=== PATIENT | female | born 1975 | race Caucasian/White ===

== ENCOUNTER 2021-12-10 09:58 | Day surgery (SDC) | payer OTHER ==
[2021-12-10] MEDS ORDERED: Depo-Medrol 40 MG/ML IM ONE (09:59)
[2021-12-10] MEDS ORDERED: BUPIVACAINE 0.5% VIAL IJ ONE (09:59)
[2021-12-10] MEDS ORDERED: DIPRIVAN 200 MG/20 ML IV ONE (11:23)
[2021-12-10] MEDS ORDERED: Lactated Ringers 1,000 ML IV ONE (12:18)
--- NOTE | 2021-12-11 08:53 | XRAY ---
Indication: Bilateral SI joint injection. Intraoperative fluoroscopy provided for 21 seconds. 3 digital spot images submitted for interpretation demonstrates posterior needle tips projecting over the inferior SI joints. Correlate with intraoperative findings/report.
--- NOTE | 2021-12-11 08:56 | XRAY ---
21 seconds of fluoroscopy was used in surgery for a bilateral SI joint injections.
== END 2021-12-10 11:48 | disposition home or self-care (01) ==
LOC: SDC-PAIN 09:58
PROVIDERS: ATTEND Psychiatry & Neurology Pain Medicine
DX: M46.1 Sacroiliitis, not elsewhere classified (principal); E11.9 Type 2 diabetes mellitus without complications; Z79.899 Other long term (current) drug therapy
CPT/HCPCS: 27096; 72202; 77002; 82947; 84703; G0260; J1030; J2704

== ENCOUNTER 2022-06-03 09:46 | Day surgery (SDC) | payer OTHER ==
[2022-06-03] MEDS ORDERED: Depo-Medrol 40 MG/ML IM ONE (09:47)
[2022-06-03] MEDS ORDERED: Marcaine Mpf 0.5% Vial 30 Ml IJ ONE (09:47)
[2022-06-03] MEDS ORDERED: Lactated Ringers 1,000 ML IV ONE (12:15)
--- NOTE | 2022-06-03 14:32 | XRAY ---
Indication: Bilateral SI joint injection. Intraoperative fluoroscopy provided for 15 seconds. 4 digital spot image submitted for interpretation demonstrates posterior needle tip projecting over the inferior left and right SI joint. Correlate with intraoperative findings/report.
--- NOTE | 2022-06-03 16:45 | XRAY ---
15 seconds of fluoroscopy was used in surgery for bilateral SI injections.
== END 2022-06-03 11:25 | disposition home or self-care (01) ==
LOC: SDC-PAIN 09:46
PROVIDERS: ATTEND Psychiatry & Neurology Pain Medicine
DX: M46.1 Sacroiliitis, not elsewhere classified (principal); E11.9 Type 2 diabetes mellitus without complications; Z79.899 Other long term (current) drug therapy
CPT/HCPCS: 27096; 72202; 77002; 81025; 82947; G0260; J1030

== ENCOUNTER 2023-09-22 09:06 | Day surgery (SDC) | payer OTHER ==
[2023-09-22] MEDS ORDERED: Decadron 4 MG INJ IV ONE (09:07)
[2023-09-22] MEDS ORDERED: Depo-Medrol 40 MG/ML IM ONE (09:07)
[2023-09-22] MEDS ORDERED: BUPIVACAINE 0.5% VIAL IJ ONE (09:07)
[2023-09-22 10:09] LABS: HCG SERUM TEST NEGATIVE (NEGATIVE)
[2023-09-22] MEDS ORDERED: DIPRIVAN 200 MG/20 ML IV ONE (10:57)
[2023-09-22] MEDS ORDERED: Lactated Ringers 1,000 ML IV ONE (14:58)
--- NOTE | 2023-09-22 21:03 | XRAY ---
Indication: Right SI joint and right piriformis injection. Intraoperative fluoroscopy provided for 32 seconds. 2 digital spot image submitted for interpretation demonstrates posterior needle tip projecting right SI joint. Second needle tip projects over piriformis with small amount of contrast injected for needle tip placement. Correlate with intraoperative findings/report.
--- NOTE | 2023-09-22 21:43 | XRAY ---
32 seconds of fluoroscopy was used in surgery for a right sacroiliac and piriformis injection.
== END 2023-09-22 11:25 | disposition home or self-care (01) ==
LOC: SDC-PAIN 09:06
PROVIDERS: ATTEND Psychiatry & Neurology Pain Medicine
DX: M46.1 Sacroiliitis, not elsewhere classified (principal); M79.18 Myalgia, other site; E11.9 Type 2 diabetes mellitus without complications; Z79.899 Other long term (current) drug therapy
CPT/HCPCS: 01992; 20552; 27096; 36415; 72170; 76942; 77002; 82947; 84703; G0260; J1030; J1100; J2704; Q9966

== ENCOUNTER 2023-11-10 10:13 | Day surgery (SDC) | payer OTHER ==
[2023-11-10] MEDS ORDERED: Sodium Chloride 0.9(Preservative Free) 10 ML IJ ONE (10:14)
[2023-11-10] MEDS ORDERED: BUPIVACAINE 0.5% VIAL IJ ONE (10:14)
[2023-11-10] MEDS ORDERED: Decadron 4 MG INJ IV ONE (10:14)
[2023-11-10 11:06] LABS: HCG URINE TEST NEGATIVE (NEGATIVE)
[2023-11-10] MEDS ORDERED: DIPRIVAN 200 MG/20 ML IV ONE (12:13)
--- NOTE | 2023-11-10 13:22 | XRAY ---
Indication: Right L4-S1 transforaminal LIV. Intraoperative fluoroscopy provided for 35 seconds. 4 digital spot images submitted for interpretation demonstrates posterior needle tips projecting over the expected right L4 and L5 nerve roots. Small amount contrast injected for needle tip placement. Correlate with intraoperative findings/report.
--- NOTE | 2023-11-10 13:22 | XRAY ---
Indication: Right piriformis injection. Intraoperative fluoroscopy provided for 16 seconds. Single digital spot images submitted for interpretation demonstrates posterior needle tip projecting over right piriformis. Small amount of contrast injected for needle tip placement. Correlate with intraoperative findings/report.
[2023-11-10] MEDS ORDERED: Lactated Ringers 1,000 ML IV ONE (14:08)
--- NOTE | 2023-11-10 15:08 | XRAY ---
16 seconds of fluoroscopy was used in surgery for a right piriformis injection.
--- NOTE | 2023-11-10 15:08 | XRAY ---
35 seconds of fluoroscopy was used in surgery for a lumbar LIV.
== END 2023-11-10 12:45 | disposition home or self-care (01) ==
LOC: SDC-PAIN 10:13
PROVIDERS: ATTEND Psychiatry & Neurology Pain Medicine
DX: M54.16 Radiculopathy, lumbar region (principal); M79.18 Myalgia, other site; E11.9 Type 2 diabetes mellitus without complications
CPT/HCPCS: 20552; 64483; 64484; 72100; 72170; 77002; 77003; 81025; 82947; J1100; J2704; Q9966

== ENCOUNTER 2023-12-29 06:59 | Day surgery (SDC) | payer OTHER ==
[~2023-12-29 06:59] MED LIST: Mylicon DROPS ONE
[2023-12-29] MEDS ORDERED: LIDOCAINE HCL 2% 100 MG/5 ML IJ ONE (07:00)
[2023-12-29 07:13] LABS: HCG URINE TEST NEGATIVE (NEGATIVE)
[2023-12-29] MEDS ORDERED: DIPRIVAN 200 MG/20 ML IV ONE (08:32)
[2023-12-29] MEDS ORDERED: Xylocaine-Mpf 2% 5 Ml Vial ONE (08:34)
[2023-12-29] MEDS ORDERED: BENADRYL 50 MG/ML ONE (08:56)
[2023-12-29] MEDS ORDERED: Lactated Ringers 1,000 ML IV ONE (09:57)
--- NOTE | 2023-12-29 10:20 | XRAY ---
Indication: Bilateral L4-S1 MBB. Intraoperative fluoroscopy provided for 15 seconds. Single digital spot image submitted for interpretation demonstrates posterior needle tips projecting over expected left and right L4-S1 nerve roots. Correlate with intraoperative findings/report.
--- NOTE | 2023-12-29 10:39 | XRAY ---
15 seconds of fluoroscopy was used in surgery for a bilateral L4-S1 MBB.
== END 2023-12-29 09:10 | disposition home or self-care (01) ==
LOC: SDC-PAIN 06:59
PROVIDERS: ATTEND Psychiatry & Neurology Pain Medicine
DX: M47.816 Spondylosis without myelopathy or radiculopathy, lumbar region (principal); E11.9 Type 2 diabetes mellitus without complications
CPT/HCPCS: 64493; 64494; 72020; 77002; 81025; 82947; J1200; J2704; A9270-GY

== ENCOUNTER 2024-01-26 10:11 | Day surgery (SDC) | payer OTHER ==
[2024-01-26] MEDS ORDERED: BUPIVACAINE 0.5% VIAL IJ ONE (10:12)
[2024-01-26] MEDS ORDERED: Depo-Medrol 40 MG/ML IM ONE (10:12)
[2024-01-26 10:38] LABS: HCG URINE TEST NEGATIVE (NEGATIVE)
[2024-01-26] MEDS ORDERED: DIPRIVAN 200 MG/20 ML IV ONE (11:38)
[2024-01-26] MEDS ORDERED: DEXMEDETOMIDINE 80 MCG/20ML-NS IV ONE (11:38)
[2024-01-26] MEDS ORDERED: Xylocaine-Mpf 2% 5 Ml Vial ONE (11:40)
[2024-01-26] MEDS ORDERED: Lactated Ringers 1,000 ML IV ONE (11:43)
--- NOTE | 2024-01-26 12:54 | XRAY ---
Indication: Bilateral SI joint injection. Intraoperative fluoroscopy provided for 13 seconds. 5 digital spot images submitted for interpretation demonstrates posterior needle tip projecting over left and right SI joint. Correlate with intraoperative findings/report.
--- NOTE | 2024-01-26 12:56 | XRAY ---
13 seconds of fluoroscopy was used in surgery for a bilateral sacroiliac joint injection.
== END 2024-01-26 12:38 | disposition home or self-care (01) ==
LOC: SDC-PAIN 10:11
PROVIDERS: ATTEND Psychiatry & Neurology Pain Medicine
DX: M46.1 Sacroiliitis, not elsewhere classified (principal); E11.9 Type 2 diabetes mellitus without complications
CPT/HCPCS: 27096; 72202; 77002; 81025; 82947; J1030; J2704; G0260

== ENCOUNTER 2024-02-23 09:33 | Day surgery (SDC) | payer OTHER ==
[2024-02-23] MEDS ORDERED: BUPIVACAINE 0.5% VIAL IJ ONE (09:34)
[2024-02-23 10:43] LABS: HCG URINE TEST NEGATIVE (NEGATIVE)
[2024-02-23] MEDS ORDERED: DIPRIVAN 200 MG/20 ML IV ONE (11:58)
[2024-02-23] MEDS ORDERED: Lactated Ringers 1,000 ML IV ONE (12:01)
--- NOTE | 2024-02-23 12:49 | XRAY ---
Indication: Bilateral L4-S1 MBB. Intraoperative fluoroscopy provided for 8 seconds. Single digital spot image submitted for interpretation demonstrates posterior needle tips projecting over expected left and right L4-S1 nerve roots. Correlate with intraoperative findings/report.
--- NOTE | 2024-02-24 14:12 | XRAY ---
8 seconds of fluoroscopy was used in surgery for a bilateral L4-S1 MBB.
== END 2024-02-23 12:28 | disposition home or self-care (01) ==
LOC: SDC-PAIN 09:33
PROVIDERS: ATTEND Psychiatry & Neurology Pain Medicine
DX: M47.816 Spondylosis without myelopathy or radiculopathy, lumbar region (principal); E11.9 Type 2 diabetes mellitus without complications
CPT/HCPCS: 64493; 64494; 72020; 77002; 81025; 82947; J2704

== ENCOUNTER 2024-03-15 09:32 | Day surgery (SDC) | payer OTHER ==
[2024-03-15] MEDS ORDERED: Depo-Medrol 40 MG/ML IM ONE (09:33)
[2024-03-15] MEDS ORDERED: XYLOCAINE-MPF 1% 5ML SDV IJ ONE (09:33)
[2024-03-15] MEDS ORDERED: BUPIVACAINE 0.5% VIAL IJ ONE (09:33)
[2024-03-15 10:07] LABS: HCG URINE TEST NEGATIVE (NEGATIVE)
[2024-03-15] MEDS ORDERED: DIPRIVAN 200 MG/20 ML IV ONE (11:02)
[2024-03-15] MEDS ORDERED: Lactated Ringers 1,000 ML IV ONE (11:16)
--- NOTE | 2024-03-15 11:58 | XRAY ---
Indication: Right L4-S1 RFA. Intraoperative fluoroscopy provided for 22 seconds. 3 digital spot image submitted for interpretation demonstrates posterior needle tips projecting over the expected right L4-S1 nerve roots. Correlate with intraoperative findings/report.
--- NOTE | 2024-03-15 12:07 | XRAY ---
22 seconds of fluoroscopy was used in surgery for a right L4-S1 RFA.
== END 2024-03-15 11:32 | disposition home or self-care (01) ==
LOC: SDC-PAIN 09:32
PROVIDERS: ATTEND Psychiatry & Neurology Pain Medicine
DX: M47.816 Spondylosis without myelopathy or radiculopathy, lumbar region (principal); E11.9 Type 2 diabetes mellitus without complications
CPT/HCPCS: 64635; 64636; 72100; 77002; 81025; 82947; J1010; J2704

== ENCOUNTER 2024-03-29 09:45 | Day surgery (SDC) | payer OTHER ==
[2024-03-29] MEDS ORDERED: BUPIVACAINE 0.5% VIAL IJ ONE (09:46)
[2024-03-29] MEDS ORDERED: LIDOCAINE HCL 1% 50 MG/5 ML VL PF IJ ONE (09:46)
[2024-03-29] MEDS ORDERED: Depo-Medrol 40 MG/ML IM ONE (09:46)
[2024-03-29 10:09] LABS: HCG URINE TEST NEGATIVE (NEGATIVE)
[2024-03-29] MEDS ORDERED: DIPRIVAN 200 MG/20 ML IV ONE (11:31)
[2024-03-29] MEDS ORDERED: Lactated Ringers 1,000 ML IV ONE (11:47)
--- NOTE | 2024-03-29 14:26 | XRAY ---
Indication: Left L4-S1 RFA. Intraoperative fluoroscopy provided for 21 seconds. 2 digital spot images submitted for interpretation demonstrates posterior needle tips projecting over the expected left L4-S1 nerve roots. Correlate with intraoperative findings/report.
--- NOTE | 2024-03-29 14:57 | XRAY ---
21 seconds of fluoroscopy was used in surgery for a left L4-S1 RFA.
== END 2024-03-29 12:06 | disposition home or self-care (01) ==
LOC: SDC-PAIN 09:45
PROVIDERS: ATTEND Psychiatry & Neurology Pain Medicine
DX: M47.816 Spondylosis without myelopathy or radiculopathy, lumbar region (principal); E11.9 Type 2 diabetes mellitus without complications
CPT/HCPCS: 64635; 64636; 72100; 77002; 81025; 82947; J1010; J2001; J2704